=== PATIENT | male | born 1950 | race Caucasian/White ===

== ENCOUNTER 2023-02-19 07:19 | Inpatient (IN) | payer MEDICARE, BC, SELFPAY ==
[2023-02-19] VITALS (17 sets, daily range): BP systolic 121–156; BP diastolic 66–99; PULSE 63–95; RESP 18–22; TEMP 35.7–36.9; O2SAT 91–97; BMI 35.0; BMI 36.2
--- NOTE | 2023-02-19 07:38 | ED.GENADULT ---
HPI - General Adult General Date Seen: 02/19/23 <Christal Cuellar MD - Last Filed: 02/22/23 13:09> Chief complaint: Rib Pain <Christal Cuellar MD - Last Filed: 02/22/23 13:09> Stated complaint: thinks he broke some ribs <Christal Cuellar MD - Last Filed: 02/22/23 13:09> Time Seen by Provider: 02/19/23 07:38 <Christal Cuellar MD - Last Filed: 02/22/23 13:09> Source: patient <Christal Cuellar MD - Last Filed: 02/22/23 13:09> Mode of arrival: ambulatory <Christal Cuellar MD - Last Filed: 02/22/23 13:09> Limitations: no limitations <Christal Cuellar MD - Last Filed: 02/22/23 13:09> History of Present Illness HPI narrative: Patient is a 73-year-old male who fell off of a hay wagon yesterday, he estimates about 4 ft. He landed on his left side. He had some pain is ribcage after the fall but sneeze this morning the pain became sharper. He denies hitting his head, no loss of consciousness. No neck pain. Shoulder is somewhat sore but he can move without too much difficulty. It hurts to take a deep breath but he is not short of breath. Does not have abdominal pain. Does not take any anticoagulation aside from a an aspirin daily. <Christal Cuellar MD - Last Filed: 02/22/23 13:09> Related Data Home medications: Home Medications Medication Instructions Recorded Confirmed aspirin 81 mg capsule 81 mg PO DAILY 02/19/23 02/19/23 atorvastatin 40 mg tablet 40 mg PO QPM 02/19/23 02/19/23 blood sugar diagnostic (Contour 02/19/23 02/19/23 Next Test Strips) cholecalciferol (vitamin D3) 50 50 mcg PO DAILY 02/19/23 02/19/23 mcg (2,000 unit) tablet (Vitamin D3) escitalopram oxalate 10 mg tablet 10 mg PO QAM 02/19/23 02/19/23 ferrous sulfate 325 mg (65 mg 325 mg PO DAILY 02/19/23 02/19/23 iron) tablet,delayed release lancets (Microlet Lancet) 02/19/23 02/19/23 losartan 25 mg tablet 25 mg PO DAILY 02/19/23 02/19/23 metformin 500 mg tablet 1,000 mg PO BID 02/19/23 02/19/23 Previous Rx's Medication Instructions Recorded ibuprofen 200 mg capsule 400 mg (2 x 200 mg) PO Q6H PRN 02/21/23 #100 caps oxycodone 5 mg capsule 5 mg PO Q4H PRN pain #20 caps 02/21/23 sennosides 8.6 mg capsule (senna) 8.6 mg PO BID PRN constipation #30 02/21/23 caps <Christal Cuellar MD - Last Filed: 02/22/23 13:09> Allergies/adverse reactions: Allergies Allergy/AdvReac Type Severity Reaction Status Date / Time adhesive Allergy blisters Verified 02/19/23 07:30 <Christal Cuellar MD - Last Filed: 02/22/23 13:09> Review of Systems Status of ROS: Reports: 6 or more systems reviewed and unremarkable except as noted in History and below <Christal Cuellar MD - Last Filed: 02/22/23 13:09> [facility] Medical History: Medical History (Updated 02/21/23 @ 13:55 by Andrew Souza MD) Anxiety ?F41.9 - Anxiety disorder, unspecified (ICD-10) KELVIN on CPAP ?G47.33 - Obstructive sleep apnea (adult) (pediatric) (ICD-10) Essential hypertension ?I10 - Essential (primary) hypertension (ICD-10) Non-insulin dependent diabetes mellitus <Christal Cuellar MD - Last Filed: 02/22/23 13:09> Surgical History: Surgical History (Updated 02/19/23 @ 11:18 by Merced Williamson MD) H/O prostatectomy ?Z90.79 - Acquired absence of other genital organ(s) (ICD-10) History of hip replacement ?Z96.649 - Presence of unspecified artificial hip joint (ICD-10) H/O lumbar discectomy ?Z98.890 - Other specified postprocedural states (ICD-10) History of total replacement of left shoulder joint ?Z96.612 - Presence of left artificial shoulder joint (ICD-10) H/O hernia repair ?Z98.890 - Other specified postprocedural states (ICD-10) ?Z87.19 - Personal history of other diseases of the digestive system (ICD-10) <Christal Cuellar MD - Last Filed: 02/22/23 13:09> Social History: Social History (Updated 02/19/23 @ 11:57 by Merced Williamson MD) Narrative: Lies with Sherice (would be MDM if needed), 3 adult children. Retired. Nonsmoker, no ETOH, no drug use. Full Code status. What is your current living situation: I presently have a place to live Problems where you live: no known problems Problems where you live details: NA In the past 12 months, utilities in danger of being shut off: no In the past 12 mos, have been you worried that your food would run out before you had money to buy more?: never true In the past 12 mos, the food you bought just didn't last and you didn't have money to buy more?: never true Highest level of school completed/degree received: 9th grade Smoking Status: Former smoker Do you use any of these nicotine containing products: None Second hand tobacco smoke exposure: No How often do you have a drink containing alcohol: never AUDIT-C Alcohol total score: 0 Non-prescribed substance use: denies use Caffeine: Yes How often does anyone, including family, friends and others, physically hurt you: How often does anyone, including family, friends and others, insult or talk down to you: How often does anyone, including family, friends and others, threaten you with harm: How often does anyone, including family, friends and others, scream or curse at you: service: No <Christal Cuellar MD - Last Filed: 02/22/23 13:09> Exam Narrative: Exam Narrative: Vital signs as noted above. In general, an alert, well-appearing patient. Head: Normocephalic, atraumatic. Eyes: Pupils are equal reactive. Extraocular movements are full. Conjunctivae are normal. ENT: Mucous membranes are moist. Throat is normal. Neck: Supple, nontender to palpation. Heart: Regular rate and rhythm. No murmur or rub. Lungs: Clear bilaterally. No increased work of breathing, crackles or wheezes. I am not able to identify a specific area of tenderness over the torso. He has pain in the sternum with AP compression, continues to complain of pain with movement or breathing in the left lateral ribcage but no bruising and no focal tenderness. Abdomen: Soft and nontender. Protuberant. Extremities: Well perfused. Pulses intact. Neurologic: Patient is alert and oriented to person and place. Speech is fluent. Face is symmetric. Moves all extremities equally. Affect: Normal. Skin: Warm and dry. Well perfused. <Christal Cuellar MD - Last Filed: 02/22/23 13:09> Const: Vital Signs, click to edit/add: Vital Signs - 24 hr 02/19/23 07:23 02/19/23 08:56 02/19/23 08:58 Temperature 96.4 F L 96.2 F L Pulse Rate 68 Pulse Rate [Pulse Oximeter] 70 67 Respiratory Rate 20 22 Blood Pressure 135/74 Blood Pressure [Le ft Upper Arm] 148/77 H 135/74 Pulse Oximetry 97 94 92 Oxygen Delivery Me thod Room Air Room Air 02/19/23 08:59 02/19/23 08:59 02/19/23 09:00 Temperature Pulse Rate 72 71 Pulse Rate [Pulse Oximeter] Respiratory Rate Blood Pressure Blood Pressure [Le ft Upper Arm] Pulse Oximetry 92 92 91 Oxygen Delivery Me thod 02/19/23 09:01 02/19/23 09:30 02/19/23 09:31 Temperature Pulse Rate 70 67 66 Pulse Rate [Pulse Oximeter] Respiratory Rate Blood Pressure 136/71 121/66 Blood Pressure [Le ft Upper Arm] Pulse Oximetry 91 91 92 Oxygen Delivery Me thod 02/19/23 09:32 Temperature Pulse Rate 68 Pulse Rate [Pulse Oximeter] Respiratory Rate Blood Pressure Blood Pressure [Le ft Upper Arm] Pulse Oximetry 92 Oxygen Delivery Me thod <Christal Cuellar MD - Last Filed: 02/22/23 13:09> Vital Signs, click to edit/add: Vital Signs - 24 hr 02/19/23 07:23 02/19/23 08:56 02/19/23 08:58 Temperature 96.4 F L 96.2 F L Pulse Rate 68 Pulse Rate [Pulse Oximeter] 70 67 Respiratory Rate 20 22 Blood Pressure 135/74 Blood Pressure [Le ft Upper Arm] 148/77 H 135/74 Pulse Oximetry 97 94 92 Oxygen Delivery Me thod Room Air Room Air 02/19/23 08:59 02/19/23 08:59 02/19/23 09:00 Temperature Pulse Rate 72 71 Pulse Rate [Pulse Oximeter] Respiratory Rate Blood Pressure Blood Pressure [Le ft Upper Arm] Pulse Oximetry 92 92 91 Oxygen Delivery Me thod 02/19/23 09:01 02/19/23 09:30 02/19/23 09:31 Temperature Pulse Rate 70 67 66 Pulse Rate [Pulse Oximeter] Respiratory Rate Blood Pressure 136/71 121/66 Blood Pressure [Le ft Upper Arm] Pulse Oximetry 91 91 92 Oxygen Delivery Me thod 02/19/23 09:32 Temperature Pulse Rate 68 Pulse Rate [Pulse Oximeter] Respiratory Rate Blood Pressure Blood Pressure [Le ft Upper Arm] Pulse Oximetry 92 Oxygen Delivery Me thod <Ella Boss MD - Last Filed: 02/19/23 10:21> Documenting provider has reviewed patient's vital signs: yes <Christal Cuellar MD - Last Filed: 02/22/23 13:09> Course Course Hospital Course: Given patient's age and height of his fall of recommended that we do a CT scan to evaluate for possible rib fractures or other bony injuries as well as to rule out intrathoracic injuries. We will place an IV, he would like something for pain so will try some oxycodone. He has had difficulty with morphine causing flushing in the past. Creatinine is pending. Patient will be signed out to Dr. Thompson for final results, disposition, plan. <Christal Cuellar MD - Last Filed: 02/22/23 13:09> Reevaluation(s) Time of Reevaluation #1: 10:17 <Ella Boss MD - Last Filed: 02/19/23 10:21> Reevaluation #1: Have reviewed with the patient and his the findings on the CT. We are going to initiate 2 L nasal cannula oxygen, have ordered an updated nursing staff to have this applied. He is still feeling pain with movement which is to be expected. They do agree for hospitalization for further following of his injuries and pneumothorax. <Ella Boss MD - Last Filed: 02/19/23 10:21> Consultations Consultation #1: Reviewed with our general surgeon Dr. Verduzco. She agrees that patient should be admitted, have chest x-ray in the morning or before if clinically needed. Will initiate supplemental oxygen. Will work on pain control for him as well. <Ella Boss MD - Last Filed: 02/19/23 10:21> Time: 10:09 <Ella Boss MD - Last Filed: 02/19/23 10:21> Consultation #2: Has spoke with the hospitalist Dr. Williamson. She agrees to accept this patient. <Ella Boss MD - Last Filed: 02/19/23 10:21> Time: 10:11 <Ella Boss MD - Last Filed: 02/19/23 10:21> Vital Signs Vital signs: Initial Vital Signs Temperature 96.4 F L 02/19/23 07:23 Temperature Source Temporal Artery Scan 02/19/23 07:23 Pulse Rate 70 02/19/23 07:23 Respiratory Rate 20 02/19/23 07:23 Blood Pressure 148/77 H 02/19/23 07:23 Blood Pressure Mean 100 02/19/23 07:23 Blood Pressure Position Standing 02/19/23 07:23 Pulse Oximetry 97 02/19/23 07:23 Oxygen Delivery Method Room Air 02/19/23 07:23 Vital Signs Temperature 96.4 F L 02/19/23 07:23 Pulse Rate 70 02/19/23 07:23 Respiratory Rate 20 02/19/23 07:23 Blood Pressure 148/77 H 02/19/23 07:23 Pulse Oximetry 97 02/19/23 07:23 Oxygen Delivery Method Room Air 02/19/23 07:23 Temperature 97.7 F 02/21/23 08:29 Pulse Rate 67 02/21/23 08:29 Respiratory Rate 20 02/21/23 08:30 Blood Pressure 159/82 H 02/21/23 08:29 Pulse Oximetry 94 02/21/23 08:30 Oxygen Delivery Method Room Air 02/21/23 08:30 Oxygen Flow Rate 0.5 02/20/23 19:10 <Christal Cuellar MD - Last Filed: 02/22/23 13:09> Initial Vital Signs Temperature 96.4 F L 02/19/23 07:23 Temperature Source Temporal Artery Scan 02/19/23 07:23 Pulse Rate 70 02/19/23 07:23 Respiratory Rate 20 02/19/23 07:23 Blood Pressure 148/77 H 02/19/23 07:23 Blood Pressure Mean 100 02/19/23 07:23 Blood Pressure Position Standing 02/19/23 07:23 Pulse Oximetry 97 02/19/23 07:23 Oxygen Delivery Method Room Air 02/19/23 07:23 Vital Signs Temperature 96.4 F L 02/19/23 07:23 Pulse Rate 70 02/19/23 07:23 Respiratory Rate 20 02/19/23 07:23 Blood Pressure 148/77 H 02/19/23 07:23 Pulse Oximetry 97 02/19/23 07:23 Oxygen Delivery Method Room Air 02/19/23 07:23 Temperature 97.7 F 02/21/23 08:29 Pulse Rate 67 02/21/23 08:29 Respiratory Rate 20 02/21/23 08:30 Blood Pressure 159/82 H 02/21/23 08:29 Pulse Oximetry 94 02/21/23 08:30 Oxygen Delivery Method Room Air 02/21/23 08:30 Oxygen Flow Rate 0.5 02/20/23 19:10 <Ella Boss MD - Last Filed: 02/19/23 10:21> Medical Decision Making Lab Data Lab results reviewed: Yes I reviewed the patient's lab results <Ella Boss MD - Last Filed: 02/19/23 10:21> Labs: Lab Results 02/19/23 02/19/23 Range/Units 07:50 07:54 WBC 8.91 (4.50-11.00) K/uL RBC 4.37 (4.30-5.90) m/uL Hgb 13.6 (13.5-17.5) gm/dL Hct 38.7 (37.0-53.0) % MCV 89 (80-100) fL MCH 31 (26-34) pg MCHC 35 (32-36) gm/dL RDW Coeff of Jordin 11.9 (11.5-15.5) % Plt Count 288 (140-440) K/uL Neut % (Auto) 75.2 H (42.0-72.0) % Lymph % (Auto) 15.4 L (20-44) % Charlton % (Auto) 7.1 (0.0-11.0) % Eos % (Auto) 1.9 (0.0-7.0) % Baso % (Auto) 0.2 (0.0-3.0) % Neut # (Auto) 6.70 (1.7-7.0) K/uL Lymph # (Auto) 1.40 (0.90-2.90) K/uL Charlton # (Auto) 0.60 (0.00-0.90) K/UL Eos # (Auto) 0.17 (0.00-0.50) K/uL Baso # (Auto) 0.02 (0.00-0.30) K/uL Sodium 133 L (135-149) mmol/L Potassium 4.6 (3.6-5.1) mmol/L Chloride 98 (96-114) mmol/L Carbon Dioxide 28 (20-32) mmol/L BUN 14 (7-30) mg/dL Creatinine 0.8 (0.5-1.5) mg/dL Estimated Creat Clear 63.65 Estimated GFR 93 ml/min Glucose 163 H (60-115) mg/dL Calcium 9.7 (8.4-10.6) mg/dL <Christal Cuellar MD - Last Filed: 02/22/23 13:09> Lab Results 02/19/23 02/19/23 Range/Units 07:50 07:54 WBC 8.91 (4.50-11.00) K/uL RBC 4.37 (4.30-5.90) m/uL Hgb 13.6 (13.5-17.5) gm/dL Hct 38.7 (37.0-53.0) % MCV 89 (80-100) fL MCH 31 (26-34) pg MCHC 35 (32-36) gm/dL RDW Coeff of Jordin 11.9 (11.5-15.5) % Plt Count 288 (140-440) K/uL Neut % (Auto) 75.2 H (42.0-72.0) % Lymph % (Auto) 15.4 L (20-44) % Charlton % (Auto) 7.1 (0.0-11.0) % Eos % (Auto) 1.9 (0.0-7.0) % Baso % (Auto) 0.2 (0.0-3.0) % Neut # (Auto) 6.70 (1.7-7.0) K/uL Lymph # (Auto) 1.40 (0.90-2.90) K/uL Charlton # (Auto) 0.60 (0.00-0.90) K/UL Eos # (Auto) 0.17 (0.00-0.50) K/uL Baso # (Auto) 0.02 (0.00-0.30) K/uL Sodium 133 L (135-149) mmol/L Potassium 4.6 (3.6-5.1) mmol/L Chloride 98 (96-114) mmol/L Carbon Dioxide 28 (20-32) mmol/L BUN 14 (7-30) mg/dL Creatinine 0.8 (0.5-1.5) mg/dL Estimated Creat Clear 63.65 Estimated GFR 93 ml/min Glucose 163 H (60-115) mg/dL Calcium 9.7 (8.4-10.6) mg/dL <Ella Boss MD - Last Filed: 02/19/23 10:21> Imaging Data CT scan - chest: Attestation: I have reviewed the pertinent imaging results. <Ella Boss MD - Last Filed: 02/19/23 10:21> Radiologist's impression: Patient: BALBIR RAMIREZ Facility:?[facility] Patient ID:?[id number] Site Patient ID:?[id number]. Site :?[id number] Study:?CT Chest with 75cc Isovue 370-02/19/2023 9:09:47 AM Ordering Physician:Gardenia Siegel Final Report: INDICATION: Left rib pain after fall TECHNIQUE: Axial images were obtained from the thoracic inlet to the diaphragm. Reformats: Coronal and sagittal IV Contrast: 75 cc Isovue 370 COMPARISON: None. FINDINGS: Mediastinum: No pericardial effusion. Mild atherosclerotic calcification. No enlarged mediastinal lymph nodes. Hypodense right lobe thyroid lesion with some peripheral calcification measuring 14 millimeters. Lungs and Pleural Space: Trace left pleural effusion. Trace left pneumothorax. Minimal dependent atelectasis on the left. Mild bronchial wall thickening noted with discoid atelectasis and mild bronchiectasis on the right. Chest wall: No masses. Upper abdomen: Multiple hepatic cysts, largest measuring 3.7 centimeters. Cholelithiasis without pericholecystic inflammation. Bones: Status post left shoulder replacement with advanced right glenohumeral osteoarthritis. Left 4th rib fracture laterally with 1 millimeter displacement. Left 5th and 6th rib fractures laterally with 2 millimeters displacement. Old left 11th rib fracture posterolaterally. IMPRESSION: 1. Mildly displaced acute left 4th, 5th and 6th rib fractures with trace left pneumothorax and trace left pleural effusion. 2. Mild right lower lobe bronchiectasis with bronchial wall thickening which can be seen in bronchitis. 3. Right lobe thyroid lesion measuring 14 millimeters. Follow-up outpatient thyroid ultrasound suggested for further characterization. 4. Cholelithiasis. Please note that all CT scans at this facility use dose modulation, iterative reconstruction, and/or weight-based dosing when appropriate to reduce radiation dose to as low as reasonably achievable. Dictated by Leonel Connor MD @ 02/19/2023 10:07:02 AM (Electronic Signature) <Ella Boss MD - Last Filed: 02/19/23 10:21> Discharge Plan Discharge Clinical Impression: Fall, Multiple rib fractures, Pneumothorax on left <Christal Cuellar MD - Last Filed: 02/22/23 13:09> Patient Disposition: Admitted As Inpatient <Christal Cuellar MD - Last Filed: 02/22/23 13:09> Condition: Stable <Christal Cuellar MD - Last Filed: 02/22/23 13:09>
--- NOTE | 2023-02-19 07:41 | CRLHL7_ITS ---
For Patients: As a result of the Century Cures Act, medical imaging exams and procedure reports are released immediately into your electronic medical record. You may view this report before your referring provider. If you have questions, please contact your health care provider. INDICATION: Left rib pain after fall TECHNIQUE: Axial images were obtained from the thoracic inlet to the diaphragm. Reformats: Coronal and sagittal IV Contrast: 75 cc Isovue 370 COMPARISON: None. FINDINGS: Mediastinum: No pericardial effusion. Mild atherosclerotic calcification. No enlarged mediastinal lymph nodes. Hypodense right lobe thyroid lesion with some peripheral calcification measuring 14 millimeters. Lungs and Pleural Space: Trace left pleural effusion. Trace left pneumothorax. Minimal dependent atelectasis on the left. Mild bronchial wall thickening noted with discoid atelectasis and mild bronchiectasis on the right. Chest wall: No masses. Upper abdomen: Multiple hepatic cysts, largest measuring 3.7 centimeters. Cholelithiasis without pericholecystic inflammation. Bones: Status post left shoulder replacement with advanced right glenohumeral osteoarthritis. Left 4th rib fracture laterally with 1 millimeter displacement. Left 5th and 6th rib fractures laterally with 2 millimeters displacement. Old left 11th rib fracture posterolaterally. IMPRESSION: 1. Mildly displaced acute left 4th, 5th and 6th rib fractures with trace left pneumothorax and trace left pleural effusion. 2. Mild right lower lobe bronchiectasis with bronchial wall thickening which can be seen in bronchitis. 3. Right lobe thyroid lesion measuring 14 millimeters. Follow-up outpatient thyroid ultrasound suggested for further characterization. 4. Cholelithiasis. Please note that all CT scans at this facility use dose modulation, iterative reconstruction, and/or weight-based dosing when appropriate to reduce radiation dose to as low as reasonably achievable. Dictated by Leonel Connor MD @ 02/19/2023 10:07:02 AM (Electronically Signed)
[2023-02-19] MEDS: OXYCODONE 5 MG TABLET PO ×3 (07:53→19:13)
[2023-02-19 08:05] LABS: Basophils Absolute Auto 0.02 K/uL (0.00-0.30); Basophils Percent Auto 0.2 % (0.0-3.0); Eosinophils Absolute Auto 0.17 K/uL (0.00-0.50); Eosinophils Percent Auto 1.9 % (0.0-7.0); Hematocrit 38.7 % (37.0-53.0); Hemoglobin* 13.6 gm/dL (13.5-17.5); Immature Granulocytes Abs Auto 0.02 K/uL (0.00-0.30); Immature Granulocytes Pct Auto 0.2 %; Lymphocytes Percent Auto 15.4 % (20-44); Mean Corpuscular HGB Conc 35 gm/dL (32-36); Mean Corpuscular Hemoglobin 31 pg (26-34); Mean Corpuscular Volume 89 fL (80-100); Monocytes Percent Auto 7.1 % (0.0-11.0); Neutrophils Percent Auto 75.2 % (42.0-72.0); Platelet Count* 288 K/uL (140-440); RDW Coefficient of Variation % 11.9 % (11.5-15.5); Red Blood Count 4.37 m/uL (4.30-5.90); White Blood Count* 8.91 K/uL (4.50-11.00)
[2023-02-19 08:09] LABS: Slide Review Reflex No
[2023-02-19 08:24] LABS: Chloride* 98 mmol/L (96-114)
[2023-02-19 08:25] LABS: Potassium* 4.6 mmol/L (3.6-5.1); Sodium* 133 mmol/L (135-149)
[2023-02-19 08:27] LABS: Creatinine* 0.8 mg/dL (0.5-1.5); Est. Creatinine Clearance* 63.65; Estimated Glomerular Filt Rate 93 ml/min
[2023-02-19 08:28] LABS: Blood Urea Nitrogen* 14 mg/dL (7-30); Calcium* 9.7 mg/dL (8.4-10.6); Carbon Dioxide* 28 mmol/L (20-32); Glucose* 163 mg/dL (60-115)
--- NOTE | 2023-02-19 10:21 | ED.NURSE ---
O2 2LPM via NC applied per MD request. Sats 92-96% on 2LPM. Bed positioned for comfort. Pulse Ox in place. Call light within reach.
--- NOTE | 2023-02-19 11:19 | ED.NURSE ---
Report given to BIJU Ross. Pt will go to Rm [id number].
--- NOTE | 2023-02-19 11:55 | PM.IMHP1 ---
Hospitalist- H&P: HPI History of Present Illness Date Seen: 02/19/23 Chief complaint: thinks he broke some ribs Narrative: Faisal Stapleton is a 73 year old male who presented to the ED this morning for Left sided Chest pain after a fall. He was working at home yesterday afternoon, had a mechanical fall off of a [employer] wagon (estimates 4-6 foot fall), landed on his left side. No LOC. Has pain when getting up and down from a seated position, mild discomfort when taking a deep breath. No abdominal pain or other concerns. ER Course and Findings: - L 4-6th rib fractures, trace L pneumothorax on CT - incidentally noted R thyroid nodule - reassuring labs - pain improved somewhat with 5mg of Oxycodone Given injury and findings, patient admitted to the hospital for pain management and monitoring. Past medical history updated below. PCP is Dr. Chen. On daily ASA, no other anticoagulation. Review of Systems Status of ROS: Reports: 10 or more systems reviewed and unremarkable except as noted in History and below [facility] Medical History (Updated 02/19/23 @ 12:07 by Merced Williamson MD) Anxiety ?F41.9 - Anxiety disorder, unspecified (ICD-10) KELVIN on CPAP ?G47.33 - Obstructive sleep apnea (adult) (pediatric) (ICD-10) Essential hypertension ?I10 - Essential (primary) hypertension (ICD-10) Non-insulin dependent diabetes mellitus Surgical History (Updated 02/19/23 @ 11:18 by Merced Williamson MD) H/O prostatectomy ?Z90.79 - Acquired absence of other genital organ(s) (ICD-10) History of hip replacement ?Z96.649 - Presence of unspecified artificial hip joint (ICD-10) H/O lumbar discectomy ?Z98.890 - Other specified postprocedural states (ICD-10) History of total replacement of left shoulder joint ?Z96.612 - Presence of left artificial shoulder joint (ICD-10) H/O hernia repair ?Z98.890 - Other specified postprocedural states (ICD-10) ?Z87.19 - Personal history of other diseases of the digestive system (ICD-10) Social History (Updated 02/19/23 @ 11:57 by Merced Williamson MD) Narrative: Lies with Sherice (would be MDM if needed), 3 adult children. Retired. Nonsmoker, no ETOH, no drug use. Full Code status. Smoking Status: Former smoker Do you use any of these nicotine containing products: None Second hand tobacco smoke exposure: No How often do you have a drink containing alcohol: never AUDIT-C Alcohol total score: 0 Non-prescribed substance use: denies use Meds Home Medications and Allergies Home Medications Medication Instructions Recorded Confirmed Type aspirin 81 mg capsule 81 mg PO DAILY 02/19/23 02/19/23 History atorvastatin 40 mg tablet 40 mg PO QPM 02/19/23 02/19/23 History blood sugar diagnostic (Contour 02/19/23 02/19/23 History Next Test Strips) escitalopram oxalate 10 mg tablet 10 mg PO QAM 02/19/23 02/19/23 History ferrous sulfate 325 mg (65 mg 325 mg PO DAILY 02/19/23 02/19/23 History iron) tablet,delayed release lancets (Microlet Lancet) 02/19/23 02/19/23 History losartan 25 mg tablet 25 mg PO DAILY 02/19/23 02/19/23 History metformin 500 mg tablet 1,000 mg PO BID 02/19/23 02/19/23 History Allergies Allergy/AdvReac Type Severity Reaction Status Date / Time adhesive Allergy blisters Verified 02/19/23 07:30 Exam Narrative: Exam Narrative: GEN: Alert and oriented, appears uncomfortable but nontoxic HEENT: EOMIs bilaterally, no scleral icterus CV: RRR, No concerning murmurs R: No wheezing, coarse lung sounds left base. Tenderness to palpation over left chest wall, no crepitus Ext: wwp, no concerning edema Skin: Scattered bruising of left upper extremity, no significant bruising over left back or chest Neuro: No focal deficits Psych: Appropriate Const: Vital Signs, click to edit/add: Vital Signs - 24 hr 02/19/23 07:23 02/19/23 08:56 02/19/23 08:58 Temperature 96.4 F L 96.2 F L Pulse Rate 68 Pulse Rate [Pulse Oximeter] 70 67 Respiratory Rate 20 22 Blood Pressure 135/74 Blood Pressure [Le ft Upper Arm] 148/77 H 135/74 Pulse Oximetry 97 94 92 Oxygen Delivery Me thod Room Air Room Air Oxygen Flow Rate 02/19/23 08:59 02/19/23 08:59 02/19/23 09:00 Temperature Pulse Rate 72 71 Pulse Rate [Pulse Oximeter] Respiratory Rate Blood Pressure Blood Pressure [Le ft Upper Arm] Pulse Oximetry 92 92 91 Oxygen Delivery Me thod Oxygen Flow Rate 02/19/23 09:01 02/19/23 09:30 02/19/23 09:31 Temperature Pulse Rate 70 67 66 Pulse Rate [Pulse Oximeter] Respiratory Rate Blood Pressure 136/71 121/66 Blood Pressure [Le ft Upper Arm] Pulse Oximetry 91 91 92 Oxygen Delivery Me thod Oxygen Flow Rate 02/19/23 09:32 02/19/23 10:02 02/19/23 10:21 Temperature Pulse Rate 68 66 Pulse Rate [Pulse Oximeter] Respiratory Rate Blood Pressure 130/74 Blood Pressure [Le ft Upper Arm] Pulse Oximetry 92 92 92 Oxygen Delivery Me thod Nasal Cannula Oxygen Flow Rate 2 02/19/23 10:31 02/19/23 11:01 Temperature Pulse Rate 63 64 Pulse Rate [Pulse Oximeter] Respiratory Rate Blood Pressure 142/78 H 134/79 Blood Pressure [Le ft Upper Arm] Pulse Oximetry 96 96 Oxygen Delivery Me thod Oxygen Flow Rate Hospitalist - H&P: Result Labs Labs: Short CBC 02/19/23 Range/Units 07:50 WBC 8.91 (4.50-11.00) K/uL Hgb 13.6 (13.5-17.5) gm/dL Hct 38.7 (37.0-53.0) % Plt Count 288 (140-440) K/uL BMP 02/19/23 07:54 Sodium 133 L Potassium 4.6 Chloride 98 Carbon Dioxide 28 BUN 14 Creatinine 0.8 Glucose 163 H Calcium 9.[address] scan - chest: Attestation: I have reviewed the pertinent imaging results. Radiologist's impression: IMPRESSION: 1. Mildly displaced acute left 4th, 5th and 6th rib fractures with trace left pneumothorax and trace left pleural effusion. 2. Mild right lower lobe bronchiectasis with bronchial wall thickening which can be seen in bronchitis. 3. Right lobe thyroid lesion measuring 14 millimeters. Follow-up outpatient thyroid ultrasound suggested for further characterization. 4. Cholelithiasis. Please note that all CT scans at this facility use dose modulation, iterative reconstruction, and/or weight-based dosing when appropriate to reduce radiation dose to as low as reasonably achievable. Assessment and Plan Assessment and plan (1) Multiple rib fractures: Problem comment: - pain control, anesthesia consult Status: Acute (2) Pneumothorax on left: Problem comment: - small, stable at this time without need for acute intervention - monitor clinically, f/u XR ordered for 02/20 am - discussed with Dr. Verduzco of General Surgery Status: Acute (3) Thyroid nodule: Problem comment: - incidentally noted on 02/19 imaging, pt aware - outpatient f/u Status: Acute (4) KELVIN on CPAP: Status: Acute (5) Essential hypertension: Problem comment: - continue home medications Status: Acute (6) Non-insulin dependent diabetes mellitus: Problem comment: - last A1C 6.8 - continue Metformin Status: Acute Plan - per above - SCDs for ppx - Full Code - will d/c home with when medically stable
[2023-02-19] MEDS: MORPHINE 4 MG/ML INJ IVP (12:08)
[2023-02-19] MEDS: SODIUM CHLORIDE 0.9 % (FLUSH) 10 ML SYRINGE 5 ML IVF ×2 (12:08→21:21)
--- NOTE | 2023-02-19 13:19 | W.PM.NB ---
Nerve Block Nerve Block Time Seen by Provider: 12:30 Date Seen: 02/19/23 Type of block requested by surgeon for post-operative analgesia: other periph nerve block (erector spinae) Side: left Time out performed: Yes Verification of patient name: Yes Verification of date of : Yes Site marking: site marked Name of person performing procedure: Yael Robert Continuous monitoring Was continuous monitoring of O2 sat, B/P, diagnostic cardiac sonographer, recorded every 15 minutes?: Yes Procedure Checklist: sterile prep, needles and gloves Ultrasound guided. Images saved: Yes Medications given in 5ml increments after negative aspiration: Marcaine %: 0.25 mL: 20 Needle gauge: 20 and Exparel mL: 10 Patient tolerated procedure well: Yes Block Charges Block Charge (with Pro Fee): Intercostal Nerve Block Use of Ultrasound Machine for Block: Yes- US Guidance/pain block
[2023-02-19] MEDS: ACETAMINOPHEN 650 MG TABLET ER 1300 MG PO ×2 (13:58→21:20)
[2023-02-19] MEDS: LIDOCAINE 5% PATCH 1 PATCH TRANSDERMA (14:02)
--- NOTE | 2023-02-19 14:19 | PC.NURSE ---
Pt alert and oriented. Pt arrived to floor from ED at 1140. Pt has pain ranging from 3-8 during shift. See EMAR for intervention. Pt up with assistance one up is a SBA. Pt comes from home with . Pt had a block done by gabino to help with pain. Pt is a regular diet and has been tolerating well.
--- NOTE | 2023-02-19 15:26 | RESP.RT ---
Patient is currently on 2L NC SATing 95%. Reviewed splinting and deep breathing exercises.
[2023-02-19] MEDS: METFORMIN 500 MG TABLET 1000 MG PO (17:18)
[2023-02-19 18:21] LABS: Hemoglobin* 12.4 gm/dL (13.5-17.5)
[2023-02-19] MEDS: ATORVASTATIN CALCIUM 40 MG TABLET PO (21:21)
--- NOTE | 2023-02-19 23:30 | PC.NURSE ---
Shift [id number]- Patient states pain with movement, but relief with PRN and scheduled pain medications. Ice also applied. Appetite intact. He is up with SBA. Remains on 2L O2 with saturations in low-mid 90s%.
[2023-02-20] VITALS (8 sets, daily range): BP systolic 128–173; BP diastolic 76–84; PULSE 67–76; RESP 16–22; TEMP 36.5–36.9; O2SAT 89–95
[2023-02-20] MEDS: ACETAMINOPHEN 650 MG TABLET ER 1300 MG PO ×3 (05:59→22:52)
[2023-02-20] MEDS: SODIUM CHLORIDE 0.9 % (FLUSH) 10 ML SYRINGE 5 ML IVF ×3 (05:59→22:57)
[2023-02-20] MEDS: MORPHINE 4 MG/ML INJ IVP (05:59)
--- NOTE | 2023-02-20 07:00 | CRLHL7_ITS ---
For Patients: As a result of the Century Cures Act, medical imaging exams and procedure reports are released immediately into your electronic medical record. You may view this report before your referring provider. If you have questions, please contact your health care provider. Indication: Pneumothorax. Technique: Chest 1 view. Comparison: February 19, 2023. Findings/Impression: Cardiovascular and mediastinum: Cardiomegaly present. Normal pulmonary vasculature. Lungs and pleural space: Assessment is limited by body habitus and shallow depth of inspiration. Lungs and pleural spaces appear clear. No pneumothorax visualized. Bones and soft tissues: No acute findings. Dictated by Tacho Bobo MD @ 02/20/2023 7:21:45 AM (Electronically Signed)
--- NOTE | 2023-02-20 07:05 | PC.NURSE ---
Shift note: Pt's rib pain has been managed with icapack and pain medications. Pain has been rated at 3 to 9, only get severe on attempt to move out of bed. Ambulate independently to and from BR. Pt had adequate sleep and vitally stable.
[2023-02-20 07:14] LABS: Basophils Absolute Auto 0.02 K/uL (0.00-0.30); Basophils Percent Auto 0.2 % (0.0-3.0); Eosinophils Absolute Auto 0.31 K/uL (0.00-0.50); Eosinophils Percent Auto 3.7 % (0.0-7.0); Hematocrit 36.1 % (37.0-53.0); Hemoglobin* 12.5 gm/dL (13.5-17.5); Immature Granulocytes Abs Auto 0.02 K/uL (0.00-0.30); Immature Granulocytes Pct Auto 0.2 %; Lymphocytes Percent Auto 19.1 % (20-44); Mean Corpuscular HGB Conc 35 gm/dL (32-36); Mean Corpuscular Hemoglobin 31 pg (26-34); Mean Corpuscular Volume 88 fL (80-100); Monocytes Percent Auto 8.8 % (0.0-11.0); Neutrophils Absolute Auto 5.71 K/uL (1.7-7.0); Platelet Count* 201 K/uL (140-440); RDW Coefficient of Variation % 11.9 % (11.5-15.5); Red Blood Count 4.09 m/uL (4.30-5.90); White Blood Count* 8.41 K/uL (4.50-11.00)
[2023-02-20 08:05] LABS: Slide Review Reflex Yes
[2023-02-20 08:06] LABS: Slide Review Acceptable Review (Acceptable)
[2023-02-20] MEDS: METFORMIN 500 MG TABLET 1000 MG PO ×2 (08:14→17:00)
[2023-02-20] MEDS: OXYCODONE 5 MG TABLET PO ×3 (09:22→17:58)
[2023-02-20] MEDS: LOSARTAN POTASSIUM 50 MG TABLET 25 MG PO (09:22)
[2023-02-20] MEDS: ESCITALOPRAM 10 MG TABLET PO (09:23)
--- NOTE | 2023-02-20 10:30 | RESP.RT ---
Patient sitting up in bed resting comfortably, reduced NC to 1 Lpm, SaO2 91-92%. Use of IS with good effort, increased pain with inspiration, had patient slow his inspiration down, increase inspiration time, this he reported decreased his pain on inspiration with IS. Patient has Home CPAP, stated he uses it regularly. Has had a dozen years. Goal to wean oxygen, but continued use of needed on lowest setting.
--- NOTE | 2023-02-20 10:52 | PM.GSCN ---
History of Present Illness Consult details Date Seen: 02/20/23 Consult date: 02/20/23 Narrative: Patient presented to the hospital yesterday for back and right-sided chest pain after falling off of a hay truck. He states that he was climbing down from the mountain of hay when he fell and landed on his left side. He is unsure whether not he his head, but a denies any loss of consciousness. He was able to stand up and walk back home. At home he started to feel better with rest and did not go to the emergency department at that time. The next morning he was eating breakfast when he sneezed and had a significant amount of pain, which is what prompted him to come in. His main complaint today as back and right-sided rib pain. He is having difficulty taking deep breath secondary to this pain. He denies any other lacerations or areas of soreness. He is a nonsmoker and no alcohol use. Review of Systems Status of ROS: Reports: 6 or more systems reviewed and unremarkable except as noted in History and below [facility] Medical History (Updated 02/20/23 @ 11:02 by Triny Verduzco MD) Anxiety ?F41.9 - Anxiety disorder, unspecified (ICD-10) KELVIN on CPAP ?G47.33 - Obstructive sleep apnea (adult) (pediatric) (ICD-10) Essential hypertension ?I10 - Essential (primary) hypertension (ICD-10) Non-insulin dependent diabetes mellitus Surgical History (Updated 02/19/23 @ 11:18 by Merced Williamson MD) H/O prostatectomy ?Z90.79 - Acquired absence of other genital organ(s) (ICD-10) History of hip replacement ?Z96.649 - Presence of unspecified artificial hip joint (ICD-10) H/O lumbar discectomy ?Z98.890 - Other specified postprocedural states (ICD-10) History of total replacement of left shoulder joint ?Z96.612 - Presence of left artificial shoulder joint (ICD-10) H/O hernia repair ?Z98.890 - Other specified postprocedural states (ICD-10) ?Z87.19 - Personal history of other diseases of the digestive system (ICD-10) Social History (Updated 02/19/23 @ 11:57 by Merced Williamson MD) Narrative: Lies with Sherice (would be MDM if needed), 3 adult children. Retired. Nonsmoker, no ETOH, no drug use. Full Code status. What is your current living situation: I presently have a place to live Problems where you live: no known problems Problems where you live details: NA In the past 12 months, utilities in danger of being shut off: no In the past 12 mos, have been you worried that your food would run out before you had money to buy more?: never true In the past 12 mos, the food you bought just didn't last and you didn't have money to buy more?: never true Highest level of school completed/degree received: 9th grade Smoking Status: Former smoker Do you use any of these nicotine containing products: None Second hand tobacco smoke exposure: No How often do you have a drink containing alcohol: never AUDIT-C Alcohol total score: 0 Non-prescribed substance use: denies use Caffeine: Yes How often does anyone, including family, friends and others, physically hurt you: How often does anyone, including family, friends and others, insult or talk down to you: How often does anyone, including family, friends and others, threaten you with harm: How often does anyone, including family, friends and others, scream or curse at you: service: No Meds Home Medications and Allergies Home Medications Medication Instructions Recorded Confirmed Type aspirin 81 mg capsule 81 mg PO DAILY 02/19/23 02/19/23 History atorvastatin 40 mg tablet 40 mg PO QPM 02/19/23 02/19/23 History blood sugar diagnostic (Contour 02/19/23 02/19/23 History Next Test Strips) cholecalciferol (vitamin D3) 50 50 mcg PO DAILY 02/19/23 02/19/23 History mcg (2,000 unit) tablet (Vitamin D3) escitalopram oxalate 10 mg tablet 10 mg PO QAM 02/19/23 02/19/23 History ferrous sulfate 325 mg (65 mg 325 mg PO DAILY 02/19/23 02/19/23 History iron) tablet,delayed release lancets (Microlet Lancet) 02/19/23 02/19/23 History losartan 25 mg tablet 25 mg PO DAILY 02/19/23 02/19/23 History metformin 500 mg tablet 1,000 mg PO BID 02/19/23 02/19/23 History Allergies Allergy/AdvReac Type Severity Reaction Status Date / Time adhesive Allergy blisters Verified 02/19/23 07:30 Exam Narrative: Exam Narrative: General: Alert and oriented, no acute distress HEENT: PERRLA, no sinus tenderness or facial tenderness to palpation. External ears within normal limits, clear sclera. Palpation of had with no areas of tenderness or evidence of trauma. Neck: No midline cervical spinal tenderness to palpation, full range of motion. I am able to palpate a small nodule on the right thyroid gland. No evidence of cervical lymphadenopathy. Chest: Tenderness to the left side of the chest and left back. No significant hematoma or ecchymoses appreciated. No subcutaneous emphysema. Back: Left back tenderness to palpation, no obvious ecchymoses or hematoma. No other areas of trauma. No spinal tenderness. Pulmonary: Maintained on room air and 90%, pain with deep respiration. Patient is only able to go to about 750 mL on the IS. Breath sounds appreciated bilaterally, some atelectasis bilateral. CV: Well perfused, regular rhythm and rate Abdomen: Soft, nontender nondistended Extremities: Left upper extremity ecchymoses along the distal aspect, nontender to palpation. Full range of motion of joints. No evidence of trauma to right upper extremity No evidence of trauma to bilateral lower extremity Const: Vital Signs, click to edit/add: Vital Signs - 24 hr 02/19/23 11:01 02/19/23 11:40 02/19/23 11:40 Temperature 97.1 F L Pulse Rate 64 Pulse Rate [Pulse Oximeter] Respiratory Rate 20 20 Blood Pressure 134/79 Blood Pressure [Ri ght Arm] Pulse Oximetry 96 96 96 Oxygen Delivery Me thod Nasal Cannula Nasal Cannula Oxygen Flow Rate 2 2 02/19/23 15:32 02/19/23 15:32 02/19/23 19:20 Temperature 98.4 F 98.1 F Pulse Rate Pulse Rate [Pulse Oximeter] 95 69 Respiratory Rate 18 18 Blood Pressure Blood Pressure [Ri ght Arm] 139/79 156/99 H Pulse Oximetry 95 95 95 Oxygen Delivery Me thod Nasal Cannula Nasal Cannula Nasal Cannula Oxygen Flow Rate 2 2 2 02/19/23 23:00 02/19/23 23:00 02/19/23 23:00 Temperature 97.8 F Pulse Rate Pulse Rate [Pulse Oximeter] 67 67 Respiratory Rate 18 18 18 Blood Pressure Blood Pressure [Ri ght Arm] Pulse Oximetry 94 94 Oxygen Delivery Me thod Room Air Nasal Can nula Room Air Oxygen Flow Rate 02/20/23 03:00 02/20/23 07:00 02/20/23 07:00 Temperature 97.8 F Pulse Rate Pulse Rate [Pulse Oximeter] 67 70 Respiratory Rate 18 18 18 Blood Pressure Blood Pressure [Ri ght Arm] 146/82 H Pulse Oximetry 95 94 Oxygen Delivery Me thod Nasal Cannula Nasal Cannula Oxygen Flow Rate 2 2 02/20/23 07:00 02/20/23 10:28 Temperature 98.1 F Pulse Rate Pulse Rate [Pulse Oximeter] 70 Respiratory Rate 18 20 Blood Pressure Blood Pressure [Ri ght Arm] 148/76 H Pulse Oximetry 94 92 Oxygen Delivery Me thod Nasal Cannula Nasal Cannula Oxygen Flow Rate 2 1 Results Labs Labs: Abnormal lab results 02/19/23 02/20/23 Range/Units 18:16 06:28 RBC 4.09 L (4.30-5.90) m/uL Hgb 12.4 L 12.5 L (13.5-17.5) gm/dL Hct 36.1 L (37.0-53.0) % Lymph % (Auto) 19.1 L (20-44) % All other labs normal. Imaging Additional studies: CT chest INDICATION: Left rib pain after fall TECHNIQUE: Axial images were obtained from the thoracic inlet to the diaphragm. Reformats: Coronal and sagittal IV Contrast: 75 cc Isovue 370 COMPARISON: None. FINDINGS: Mediastinum: No pericardial effusion. Mild atherosclerotic calcification. No enlarged mediastinal lymph nodes. Hypodense right lobe thyroid lesion with some peripheral calcification measuring 14 millimeters. Lungs and Pleural Space: Trace left pleural effusion. Trace left pneumothorax. Minimal dependent atelectasis on the left. Mild bronchial wall thickening noted with discoid atelectasis and mild bronchiectasis on the right. Chest wall: No masses. Upper abdomen: Multiple hepatic cysts, largest measuring 3.7 centimeters. Cholelithiasis without pericholecystic inflammation. Bones: Status post left shoulder replacement with advanced right glenohumeral osteoarthritis. Left 4th rib fracture laterally with 1 millimeter displacement. Left 5th and 6th rib fractures laterally with 2 millimeters displacement. Old left 11th rib fracture posterolaterally. IMPRESSION: 1. Mildly displaced acute left 4th, 5th and 6th rib fractures with trace left pneumothorax and trace left pleural effusion. 2. Mild right lower lobe bronchiectasis with bronchial wall thickening which can be seen in bronchitis. 3. Right lobe thyroid lesion measuring 14 millimeters. Follow-up outpatient thyroid ultrasound suggested for further characterization. 4. Cholelithiasis. Chest x-ray: Technique: Chest 1 view. Comparison: February 19, 2023. Findings/Impression: Cardiovascular and mediastinum: Cardiomegaly present. Normal pulmonary vasculature. Lungs and pleural space: Assessment is limited by body habitus and shallow depth of inspiration. Lungs and pleural spaces appear clear. No pneumothorax visualized. Bones and soft tissues: No acute findings. Assessment and Plan Assessment and plan (1) Trauma: Status: Acute Plan Patient is a 73-year-old male who presented to the emergency department after a fall off of a truck. I was asked to consult for a trauma tertiary exam. Below are all of the findings during clinical workup in examination, with recommendations. 1. Mildly displaced acute left 4th, 5th and 6th rib fractures - patient has received a rib block by Anesthesia to assist with pain control. -agree with multimodal approach to pain control. Currently has Tylenol, oxycodone p.o., morphine and lidocaine patch. -encourage IS use and ambulation 2. Trace left pneumothorax with left pleural effusion -repeat chest x-ray this morning demonstrates no evidence of pneumothorax, there is small lung volumes on exam which is limiting. -no indication for chest tube at this time. Repeat chest x-ray only if patient becomes more symptomatic. 3. Right thyroid lesion measuring 14 mm -recommend thyroid ultrasound as an outpatient for further evaluation 4. Cholelithiasis -no further workup needed 5. Ecchymoses of left upper extremity -no need for external bandages for further evaluation indicated at this time. -physical therapy and occupational therapy consult -could consider respiratory therapy consult All other cares per hospitalist. No further workup or recommendations other than above. Surgery to sign off, please call with any clinical questions or concerns.
[2023-02-20] MEDS: SENNOSIDES 1 TAB TABLET 2 TAB PO ×2 (11:37→22:52)
[2023-02-20] MEDS: LIDOCAINE 5% PATCH 1 PATCH TRANSDERMA (13:27)
--- NOTE | 2023-02-20 14:15 | PC.NURSE ---
UP AMBULATING IN HALLWAY, PAIN WITH DEEP BREATHS, OXY AND TYLENOL FOR PAIN. LIDO PATCH APPLIED TO LEFT CHEST. PT/OT TODAY. SPOUSE IN WHILE OT ASSESSED. WEANED O2 PATIENT BOUNCES BETWEEN 89-92%, PT CURRENTLY BACK ON 1L AND SATTING 92%
--- NOTE | 2023-02-20 15:04 | RESP.RT ---
Home CPAP; Set up at bedside with Oxygen Bleed in line. Patient to start night with Home CPAP. Bleed in Oxygen 1 Lpm and increase as needed to Maintain SaO2 >90%. cloth napping supervisor at bed side. Machine, tubing, mask, cord, and water chamber found clean and in good working order. Water chamber filled to proper level.
--- NOTE | 2023-02-20 16:24 | P.IMPN_ITS ---
Progress Note: A&P Assessment and plan (1) Multiple rib fractures: Problem details: Local anesthesia and oral opioid pain medications. Status: Acute (2) Respiratory failure with hypoxia: Problem details: Due to a combination of pain from rib fractures, opioid pain medications, pre- existing sleep apnea. Ongoing medical management and monitoring. Status: Acute (3) Pneumothorax on left: Problem details: Very small. Not visible on today's chest x-ray. Likely to resolve without further intervention. Status: Acute (4) Non-insulin dependent diabetes mellitus: Problem details: - last A1C 6.8 - continue Metformin Status: Acute (5) Essential hypertension: Problem details: - continue home medications Status: Acute (6) KELVIN on CPAP: Problem details: to bring in home CPAP. Assess to see if he is hypoxic at night while using CPAP Status: Acute (7) Thyroid nodule: Problem details: - incidentally noted on 02/19 imaging, pt aware - outpatient f/u Status: Acute (8) Trauma: Problem details: Other than rib fractures there was no apparent other complication from his trauma Status: Acute Plan Continue in-hospital for monitoring of respiratory failure and pain management. Discussed complications of rib fractures, hypoxic respiratory failure and opioid use in this setting. Total time spent is 45 minutes, 30 minutes in coordination care and discussing management of rib fractures and hypoxia. Subjective Date Seen: 02/20/23 Interval history: 73-year-old male seen in followup of hospitalization for multiple left-sided rib fractures with small pneumothorax. Patient is at home and fell off a hay way again injuring his left chest 2 days ago. The pain became unbearable yesterday so he came to the emergency department. There he was found to have multiple left posterior lateral rib fractures. He was hypoxic and had a small pneumothorax so was admitted to the hospital for medical monitoring and treatment of his pain. He underwent injection into the paraspinal area with anesthesia yesterday. He is unsure of how much symptomatic relief he is gotten from that. The pain has been fairly manageable but he hurts with any movement and especially with coughing or deep breathing. He has continued to require oxygen to maintain his O2 sats. He has sleep apnea and does use CPAP at home. He will have his bring it in today so he can use it here in the hospital. Other than his rib injuries he reports generally doing well he has some other abrasions and bruises that are not bothering him significantly. Exam Narrative: Exam Narrative: He is alert and pleasant and appears in no distress. Oropharynx with small airway neck is supple out mass or adenopathy. respirations are clear to auscultation with decreased breath sounds without wheezing rales or rhonchi. Cardiovascular: S1, S2 regular rate and rhythm. Tenderness over the posterior lateral chest wall in the area of the lower angle of this left scapula. No significant external signs of trauma. Abdomen is soft without tenderness or mass. Abdomen is moderately protuberant. Extremities without significant edema. Const: Vital Signs, click to edit/add: Vital Signs - 24 hr 02/19/23 19:20 02/19/23 23:00 02/19/23 23:00 Temperature 98.1 F Pulse Rate [Pulse Oximeter] 69 67 Respiratory Rate 18 18 18 Blood Pressure [Ri ght Arm] 156/99 H Pulse Oximetry 95 94 Oxygen Delivery Me thod Nasal Cannula Room Air Nasal Can nula Oxygen Flow Rate 2 02/19/23 23:00 02/20/23 03:00 02/20/23 07:00 Temperature 97.8 F 97.8 F Pulse Rate [Pulse Oximeter] 67 67 70 Respiratory Rate 18 18 18 Blood Pressure [Ri ght Arm] 146/82 H Pulse Oximetry 94 95 Oxygen Delivery Me thod Room Air Nasal Cannula Oxygen Flow Rate 2 02/20/23 07:00 02/20/23 07:00 02/20/23 10:28 Temperature 98.1 F Pulse Rate [Pulse Oximeter] 70 Respiratory Rate 18 18 20 Blood Pressure [Ri ght Arm] 148/76 H Pulse Oximetry 94 94 92 Oxygen Delivery Me thod Nasal Cannula Nasal Cannula Nasal Cannula Oxygen Flow Rate 2 2 1 02/20/23 11:00 02/20/23 15:20 02/20/23 15:20 Temperature 98 F 98.4 F Pulse Rate [Pulse Oximeter] 72 75 Respiratory Rate 20 18 Blood Pressure [Ri ght Arm] 128/80 130/78 Pulse Oximetry 93 92 92 Oxygen Delivery Me thod Nasal Cannula Nasal Cannula Nasal Cannula Oxygen Flow Rate 2 1 1 Documenting provider has reviewed patient's vital signs: yes Labs Labs: Laboratory Results - last 24 hr 02/19/23 02/20/23 18:16 06:28 WBC 8.41 RBC 4.09 L Hgb 12.4 L 12.5 L Hct 36.1 L MCV 88 MCH 31 MCHC 35 RDW Coeff of Jordin 11.9 Plt Count 201 Neut % (Auto) 68.0 Lymph % (Auto) 19.1 L [place] % (Auto) 8.8 Eos % (Auto) 3.7 Baso % (Auto) 0.2 Neut # (Auto) 5.71 Lymph # (Auto) 1.60 [place] # (Auto) 0.70 Eos # (Auto) 0.31 Baso # (Auto) 0.02 Diff Slide Review Acceptable Review
[2023-02-20] MEDS: ONDANSETRON ODT 4 MG TAB PO (21:39)
--- NOTE | 2023-02-20 22:42 | PC.NURSE ---
Shift [id number]- Patient states pain with movement or cough. PRN pain medications administered with relief and ice applied. He is encouraged to walk in the halls, which he does. This evening, he has an episode of being diaphoretic and nauseous after rising for PM cares. Zofran administered- vitals and blood glucose checked- reassuring- see charting. He states he was not having much pain preceding this. He denied SOB. He states this happened in the past, at another time when he was taking pain medication. While he feels better, he requests to not take PM medications at this time, but will alert RN when his stomach is feeling settled enough to tolerate medications. He is also weaned from 1L O2 to room air tonight with saturation ~92%.
[2023-02-20] MEDS: ATORVASTATIN CALCIUM 40 MG TABLET PO (22:52)
[2023-02-21 03:00] VITALS: BP 135/76; PULSE 78; RESP 18; TEMP 36.9; O2SAT 89
[2023-02-21] MEDS: ACETAMINOPHEN 650 MG TABLET ER 1300 MG PO (06:18)
--- NOTE | 2023-02-21 06:30 | PC.NURSE ---
Shift note: Pt is able to ambulate independently in room. Getting out of bed is the difficult and painful part but once the pt is up pain is minimal. Alert and oriented. Pt had adequate sleep time.Pt refused CPAP and oxygen but O2 level has been between 88 and 91.
[2023-02-21 07:30] VITALS: O2SAT 93
[2023-02-21 08:29] VITALS: BP 159/82; PULSE 67; RESP 20; TEMP 36.5; O2SAT 93
[2023-02-21 08:30] VITALS: RESP 20; O2SAT 94
[2023-02-21] MEDS: METFORMIN 500 MG TABLET 1000 MG PO (08:46)
[2023-02-21] MEDS: ESCITALOPRAM 10 MG TABLET PO (08:47)
[2023-02-21] MEDS: LOSARTAN POTASSIUM 50 MG TABLET 25 MG PO (08:47)
[2023-02-21] MEDS: SENNOSIDES 1 TAB TABLET 2 TAB PO (08:47)
--- NOTE | 2023-02-21 10:51 | RESP.RT ---
Patient up in chair, appears comfortable, on room air, SaO2 94%. Patient did not use Home CPAP during night, had upset stomach. Has good clear voice, improved IS from yesterday. States feeling better today. Will be discharges, emptied water chamber on patients Home CPAP and returned to case for patient.
--- NOTE | 2023-02-21 11:19 | PC.NURSE ---
shift note: pt up indept in room. pt rating pain at rest in lt lat rib area 09/08. Pt states pain increases with cough, movement or sneezing. Pt refused oxycodone. pt medicated with tylenol. IV dc'd intact Lt AC. LS clr/dim. Reviewed dc instructions and copies sent with pt. Mignon reviewed and sent with pt.
--- NOTE | 2023-02-21 13:53 | PM.DS1 ---
DS: Providers Provider Date Seen: 02/21/23 Date of admission: 02/19/23 11:56 Primary care physician: Erika Chen DO Admitting Clinician: Merced Williamson MD Attending Physician on discharge: Jamal Souza MD Date of Discharge: 02/21/23 DS: Diagnosis Discharge Diagnosis (1) Respiratory failure with hypoxia: Status: Acute Problem details: Due to a combination of pain from rib fractures, opioid pain medications, pre-existing sleep apnea. Ongoing medical management and monitoring. Able to wean off oxygen and minimize opioid use. (2) Multiple rib fractures: Status: Acute Problem details: Local anesthesia and oral opioid pain medications. Minimize opioid use and initiate ibuprofen. (3) Pneumothorax on left: Status: Acute Problem details: Very small. Not visible on today's chest x-ray. Likely to resolve without further intervention. (4) Non-insulin dependent diabetes mellitus: Status: Acute Problem details: - last A1C 6.8 - continue Metformin (5) KELVIN on CPAP: Status: Acute Problem details: Continue home CPAP. Not hypoxic last night (6) Thyroid nodule: Status: Acute Problem details: - incidentally noted on 02/19 imaging, pt aware - outpatient f/u (7) Essential hypertension: Status: Acute Problem details: - continue home medications (8) Trauma: Status: Acute Problem details: Other than rib fractures there was no apparent other complication from his trauma DS: Summary Hospital Course Hospital Course: Faisal Stapleton is a 73 year old male who presented to the ED 02/19/2023 for Left sided Chest pain after a fall. He was working at home yesterday afternoon, had a mechanical fall off of a [employer] (estimates 4-6 foot fall), landed on his left side. No LOC. Has pain when getting up and down from a seated position, mild discomfort when taking a deep breath. No abdominal pain or other concerns. In the emergency department evaluation showed multiple rib fractures with small left-sided pleural fluid and small left-sided pneumothorax. He was hypoxic at that time and admitted to the hospital for pain control, management of hypoxia and monitoring of his pneumothorax. He received local anesthesia with some affect. He was managed with oxycodone and had adequate pain control with this. His hypoxic respiratory failure improved during his hospital stay. With his CPAP he was able to maintain his O2 sats at night. Chest x-ray the following day showed no evidence of pneumothorax, likely this will resolve without further evaluation or intervention. Incidentally noted was a thyroid nodule on his chest CT. This would benefit from outpatient follow-up Status at Discharge Functional status at discharge: independent ambulation Overall status at discharge: patient is progressing back to baseline Time Spent with Patient Time attestation: Total time spent providing and/or coordinating discharge services: Time spent: Greater than 30 minutes Exam Narrative: Exam Narrative: He is alert and appears in no distress. He moves with some discomfort. Respirations are clear to auscultation without wheezing rales rhonchi. No external signs of trauma on inspection of his back or left chest. Cardiovascular: S1, S2, regular rate and rhythm. Abdomen is soft without tenderness. Const: Vital Signs, click to edit/add: Vital Signs - 24 hr 02/20/23 15:20 02/20/23 15:20 02/20/23 19:10 Temperature 98.4 F 97.7 F Pulse Rate [Pulse Oximeter] 75 70 Respiratory Rate 18 16 Blood Pressure [Ri ght Arm] 130/78 156/84 H Pulse Oximetry 92 92 95 Oxygen Delivery Me thod Nasal Cannula Nasal Cannula Nasal Cannula Oxygen Flow Rate 1 1 0.5 02/20/23 21:20 02/20/23 23:00 02/20/23 23:00 Temperature 97.9 F Pulse Rate [Pulse Oximeter] 72 76 Respiratory Rate 22 18 18 Blood Pressure [Ri ght Arm] 173/80 H Pulse Oximetry 92 89 Oxygen Delivery Me thod Room Air Room Air Oxygen Flow Rate 02/20/23 23:00 02/21/23 03:00 02/21/23 07:30 Temperature 98.4 F 98.4 F Pulse Rate [Pulse Oximeter] 76 78 Respiratory Rate 18 18 Blood Pressure [Ri ght Arm] 154/83 H 135/76 Pulse Oximetry 89 89 93 Oxygen Delivery Me thod Room Air Room Air Room Air Oxygen Flow Rate 02/21/23 08:29 02/21/23 08:30 Temperature 97.7 F Pulse Rate [Pulse Oximeter] 67 Respiratory Rate 20 20 Blood Pressure [Ri ght Arm] 159/82 H Pulse Oximetry 93 94 Oxygen Delivery Me thod Room Air Room Air Oxygen Flow Rate Documenting provider has reviewed patient's vital signs: yes DS: Data Imaging CT scan - chest: Radiologist's impression: TECHNIQUE: Axial images were obtained from the thoracic inlet to the diaphragm. Reformats: Coronal and sagittal IV Contrast: 75 cc Isovue 370 COMPARISON: None. FINDINGS: Mediastinum: No pericardial effusion. Mild atherosclerotic calcification. No enlarged mediastinal lymph nodes. Hypodense right lobe thyroid lesion with some peripheral calcification measuring 14 millimeters. Lungs and Pleural Space: Trace left pleural effusion. Trace left pneumothorax. Minimal dependent atelectasis on the left. Mild bronchial wall thickening noted with discoid atelectasis and mild bronchiectasis on the right. Chest wall: No masses. Upper abdomen: Multiple hepatic cysts, largest measuring 3.7 centimeters. Cholelithiasis without pericholecystic inflammation. Bones: Status post left shoulder replacement with advanced right glenohumeral osteoarthritis. Left 4th rib fracture laterally with 1 millimeter displacement. Left 5th and 6th rib fractures laterally with 2 millimeters displacement. Old left 11th rib fracture posterolaterally. IMPRESSION: 1. Mildly displaced acute left 4th, 5th and 6th rib fractures with trace left pneumothorax and trace left pleural effusion. 2. Mild right lower lobe bronchiectasis with bronchial wall thickening which can be seen in bronchitis. 3. Right lobe thyroid lesion measuring 14 millimeters. Follow-up outpatient thyroid ultrasound suggested for further characterization. 4. Cholelithiasis. Discharge Plan Discharge Disposition: Home, Self-Care Date of Admission: 02/19/23 11:56 Attending Provider on Discharge: Andrew Souza Primary Care Provider: Erika Chen Condition: Stable Anticipated Discharge Date/Time: 02/21/23 10:00 Discharge Medications: New oxycodone 5 mg capsule 5 mg PO Q4H PRN (Reason: pain) Qty: 20 0RF senna 8.6 mg capsule 8.6 mg PO BID PRN (Reason: constipation) Qty: 30 0RF ibuprofen 200 mg capsule 400 mg PO Q6H PRNQty: 100 0RF Continued atorvastatin 40 mg tablet 40 mg PO QPM metformin 500 mg tablet 1,000 mg PO BID (DME) Contour Next Test Strips Strip MISCELLANEOUS DAILY (DME) lancets [Microlet Lancet] Misc MISCELLANEOUS DAILY losartan 25 mg tablet 25 mg PO DAILY ferrous sulfate 325 mg (65 mg iron) tablet,delayed release (DR/EC) 325 mg PO DAILY escitalopram oxalate 10 mg tablet 10 mg PO QAM aspirin 81 mg capsule 81 mg PO DAILY cholecalciferol (vitamin D3) [Vitamin D3] 50 mcg (2,000 unit) tablet 50 mcg PO DAILY Discharge Orders: Discharge Order (Routine); Ordered 02/21/23 Ordered By: Andrew Souza Patient Education: Ibuprofen (By mouth), Laxative, Stimulant (By mouth), Oxycodone, Rapid Release (By mouth), Traumatic Pneumothorax (DC), Rib Fracture (DC) Follow Up Appointments: [facility] [Outside] (Erika Chen Dr. Make appointment for 3-4 days for recheck.) Provider,Not a Local [Referring] - Erika Chen DO [Primary Care Provider] - 02/25/23 10:00 am ([facility] at [facility]) Forms: [employer] Info Instructions
== END 2023-02-21 09:38 | disposition home or self-care (01) | DRG 199 ==
LOC: ED 10:20 → MEDSURG 11:58
PROVIDERS: Admitting Provider Family Medicine; Emergency Provider Emergency Medicine; PCP Family Medicine; Visit Provider Family Medicine
DX: S27.0XXA Traumatic pneumothorax, initial encounter (principal); J96.01 Acute respiratory failure with hypoxia; S22.42XA Multiple fractures of ribs, left side, initial encounter for closed fracture; F41.9 Anxiety disorder, unspecified; G47.33 Obstructive sleep apnea (adult) (pediatric); I10 Essential (primary) hypertension; E11.9 Type 2 diabetes mellitus without complications; Z79.84 Long term (current) use of oral hypoglycemic drugs; E04.1 Nontoxic single thyroid nodule; V00.181A Fall from other rolling-type pedestrian conveyance, initial encounter; Y92.019 Unspecified place in single-family (private) house as the place of occurrence of the external cause; G89.11 Acute pain due to trauma
CPT/HCPCS: 36415; 64420; 71045; 71260; 76942; 80048; 82962; 85018; 85025; 94761; 97110; 97116; 97162; 97165; 97530; 99284; 99285; A9270; C9290; J2270; J3490; Q9967